=== PATIENT | female | born 1970 | race American Indian/Alaskan Native ===

== ENCOUNTER 2017-05-01 17:04 | Emergency (ER) | payer MEDICARE ==
[2017-05-01] MEDS ORDERED: PROVENTIL IH ONE ×2 (17:55→20:50)
[2017-05-01] MEDS ORDERED: TYLENOL PO ONE (18:58)
--- NOTE | 2017-05-01 19:00 | Emergency Department Report ---
Chief Complaint: Adult Asthma Stated Complaint: ASTHMA/ PAIN IN R ANKLE/BACK Time Seen by Provider: 05/01/17 18:57 - HPI History of Present Illness: pt c/o asthma exacerbation, improved sp neb - ROS Review of Systems: + cough + headache - Exam Vital Signs: Vital Signs 05/01/17 17:50 Temperature 98.1 F Pulse Rate 100 H Respiratory 22 Rate Blood Pressure 153/107 O2 Sat by Pulse 100 Oximetry Physical Exam: pt alert and appropriate, gcs 15. no acute focal weakness dry cough noted MSE screening note: Focused history and physical exam performed. Due to findings the following was ordered: med ED Disposition for MSE Condition: Stable
[2017-05-01] MEDS ORDERED: DUONEB 0.5 MG-3 MG/3 ML SOLN IH ONE (22:38)
[2017-05-01] MEDS ORDERED: MOTRIN PO ONE (22:38)
[2017-05-01] MEDS ORDERED: DELTASONE PO ONE (22:56)
--- NOTE | 2017-05-01 23:01 | Emergency Department Report ---
ED Asthma HPI - General Chief Complaint: Adult Asthma Stated Complaint: ASTHMA/ PAIN IN R ANKLE/BACK Time Seen by Provider: 05/01/17 18:57 Source: patient Mode of arrival: Ambulatory Limitations: No Limitations - History of Present Illness Initial Comments: 46-year-old female past medical history asthma, CHF, angina presents with complaint of 2-3 days of moderate wheezing. Patient states she ran out of her albuterol prescription. On exam is awake alert and oriented 3 no audible wheezing or stridor. Denies any nausea or vomiting no fever or chills denies any productive cough. States she was recently started on hydrochlorothiazide for her CHF and hypertension. States she had a negative cardiac catheterization one month ago here at [facility]. When I specifically asked the patient she says she has no associated chest pain or diaphoresis nausea or vomiting associated with shortness of breath and this feels like her prior episodes of asthma exacerbation. Patient does not know her baseline peak flow states that her last hospitalization for asthma was many years ago. Denies being intubated for asthma in the past. MD Complaint: wheezing Onset/Timin -: days(s) Asthma History: history of frequent attac Severity: moderate Context: ran out of meds Treatments Prior to Arrival: inhaled bronchodilator - Related Data Current Asthma Therapy: none Previous Rx's Medication Instructions Recorded Last Taken Type Diltiazem Cd [Cardizem CD] 180 mg PO QDAY #30 capsule 04/06/17 Unknown Rx Famotidine [Pepcid] 20 mg PO BID #20 tablet 04/06/17 Unknown Rx HYDROcodone/APAP 5-325 [Dubois 1 each PO BID PRN #10 tablet 04/06/17 Unknown Rx 5-325 mg TAB] Lisinopril [Zestril TAB] 20 mg PO DAILY #30 tablet 04/06/17 Unknown Rx Nicotine [Habitrol] 14 mg TD QDAY #30 patch 04/06/17 Unknown Rx ALBUTEROL Inhaler [ProAir HFA 2 puff IH QID PRN #1 inhalation 05/01/17 Unknown Rx Inhaler] predniSONE [Deltasone] 20 mg PO QDAY #5 tablet 05/01/17 Unknown Rx Allergies Allergy/AdvReac Type Severity Reaction Status Date / Time morphine Allergy Hives Verified 04/03/17 06:59 tramadol Allergy Hives Verified 04/03/17 06:59 ED Review of Systems ROS: Stated complaint: ASTHMA/ PAIN IN R ANKLE/BACK Other details as noted in HPI Constitutional: denies: chills, fever Eyes: denies: eye pain, eye discharge, vision change ENT: denies: ear pain, throat pain Respiratory: wheezing. denies: cough, shortness of breath Cardiovascular: denies: chest pain, palpitations Endocrine: no symptoms reported Gastrointestinal: denies: abdominal pain, nausea, diarrhea Genitourinary: denies: urgency, dysuria, discharge Musculoskeletal: denies: back pain, joint swelling, arthralgia Skin: denies: rash, lesions Neurological: denies: headache, weakness, paresthesias Psychiatric: denies: anxiety, depression Hematological/Lymphatic: denies: easy bleeding, easy bruising ED Past Medical Hx - Past Medical History Previous Medical History?: Yes Hx Hypertension: Yes Hx Asthma: Yes Additional medical history: PTSD - Surgical History Past Surgical History?: Yes Additional Surgical History: RT knee replacement, Hysterectomy - Social History Smoking Status: Current Every Day Smoker Substance Use Type: Prescribed - Medications Home Medications: Home Medications Medication Instructions Recorded Confirmed Last Taken Type Diltiazem Cd [Cardizem CD] 180 mg PO QDAY #30 capsule 04/06/17 Unknown Rx Famotidine [Pepcid] 20 mg PO BID #20 tablet 04/06/17 Unknown Rx HYDROcodone/APAP 5-325 [Dubois 1 each PO BID PRN #10 tablet 04/06/17 Unknown Rx 5-325 mg TAB] Lisinopril [Zestril TAB] 20 mg PO DAILY #30 tablet 04/06/17 Unknown Rx Nicotine [Habitrol] 14 mg TD QDAY #30 patch 04/06/17 Unknown Rx ALBUTEROL Inhaler [ProAir HFA 2 puff IH QID PRN #1 inhalation 05/01/17 Unknown Rx Inhaler] predniSONE [Deltasone] 20 mg PO QDAY #5 tablet 05/01/17 Unknown Rx ED Physical Exam - General Limitations: No Limitations General appearance: alert, in no apparent distress - Head Head exam: Present: atraumatic, normocephalic - Eye Eye exam: Present: normal appearance, PERRL, EOMI - ENT ENT exam: Present: mucous membranes moist - Neck Neck exam: Present: normal inspection, full ROM - Respiratory Respiratory exam: Present: wheezes (mild bilateral wheezing). Absent: respiratory distress - Cardiovascular Cardiovascular Exam: Present: regular rate, normal rhythm. Absent: systolic murmur, diastolic murmur, rubs, gallop - GI/Abdominal GI/Abdominal exam: Present: soft, normal bowel sounds - Extremities Exam Extremities exam: Present: normal inspection - Back Exam Back exam: Present: normal inspection - Neurological Exam Neurological exam: Present: alert, oriented X3 - Psychiatric Psychiatric exam: Present: normal affect, normal mood - Skin Skin exam: Present: warm, dry, intact, normal color. Absent: rash ED Course Vital Signs 05/01/17 05/01/17 05/01/17 17:50 20:03 20:25 Temperature 98.1 F 98.6 F Pulse Rate 100 H 108 H Pulse Rate [ 116 H Anterior Bilateral Throughout] Respiratory 22 20 Rate Respiratory 18 Rate [Anterior Bilateral Throughout] Blood Pressure 153/107 148/96 Blood Pressure [Left] O2 Sat by Pulse 100 99 Oximetry 05/01/17 05/01/17 05/01/17 20:30 20:56 21:50 Temperature 100.1 F H Pulse Rate 104 H Pulse Rate [ 110 H Anterior Bilateral Throughout] Respiratory 18 16 Rate Respiratory 20 Rate [Anterior Bilateral Throughout] Blood Pressure Blood Pressure 134/88 [Left] O2 Sat by Pulse 98 Oximetry 05/01/17 23:33 Temperature 98.0 F Pulse Rate 103 H Pulse Rate [ Anterior Bilateral Throughout] Respiratory 20 Rate Respiratory Rate [Anterior Bilateral Throughout] Blood Pressure Blood Pressure 137/90 [Left] O2 Sat by Pulse 100 Oximetry ED Medical Decision Making - Medical Decision Making A/P: Asthma exacerbation 1-albuterol refill, short course prednisone low dose as patient has history of CHF do not want to fluid overload, 2- CXR shows no CHF, no PNA. Patient feels significant relief with nebulizer treatments is ambulating in the ED O2 sat 100% on room air 3- Case d/w Dr. Merlos before discharging the patient 4- Pt given PMD referral Critical care attestation.: If time is entered above; I have spent that time in minutes in the direct care of this critically ill patient, excluding procedure time. ED Disposition Clinical Impression: Wheezing Disposition: DC-01 TO HOME OR SELFCARE Is pt being admited?: No Does the pt Need Aspirin: No Condition: Stable Instructions: Asthma (ED), Reactive Airways Disease (ED) Prescriptions: ALBUTEROL Inhaler [ProAir HFA Inhaler] 2 puff IH QID PRN #1 inhalation PRN Reason: Shortness Of Breath predniSONE [Deltasone] 20 mg PO QDAY #5 tablet Referrals: [facility] [Outside] - 3-5 Days EULALIA BURROUGHS MD [Staff Physician] - 3-5 Days Forms: Work/School Release Form(ED) Time of Disposition: 23:25
--- NOTE | 2017-05-01 23:11 | XRay Report ---
FINAL REPORT EXAM: XR CHEST ROUTINE 2V HISTORY: shortness of breath TECHNIQUE: PA and lateral chest radiographs PRIORS: None. FINDINGS: No focal consolidations are seen in the lungs and there are no pleural effusions.The cardiomediastinal silhouette is within normal limits for size and contour. No acute osseous abnormality is identified. IMPRESSION: 1. No definite radiographic evidence of acute cardiopulmonary disease. 2. No focal infiltrate is identified.
[2017-05-01 23:34] VITALS: BP 137/90
== END 2017-05-01 23:45 | disposition home or self-care (01) ==
LOC: ED 17:04
DX: R06.2 Wheezing (principal); I10 Essential (primary) hypertension; J45.909 Unspecified asthma, uncomplicated; F43.10 Post-traumatic stress disorder, unspecified; Z88.8 Allergy status to other drugs, medicaments and biological substances; Z88.5 Allergy status to narcotic agent; F17.200 Nicotine dependence, unspecified, uncomplicated
CPT/HCPCS: 71020; 94640; 99284; J7512